=== PATIENT | male | born 1965 ===

== ENCOUNTER 2019-05-25 18:44 | Observation (INO) | payer BC ==
[2019-05-25 19:04] LABS: #Basophils 0.1 thou/uL (0.0-0.2); #Eosinphils 0.1 thou/uL (0.0-0.7); #Lymphocytes 2.2 thou/uL (1.20-3.40); #Monocytes 0.6 thou/uL (0.11-0.59); #Neutrophils 4.8 thou/uL (1.40-6.50); %Basophils 1.5 % (0.0-1.0); %Eosinophils 1.8 % (0.0-10.0); %Lymphocytes 27.8 % (21.0-51.0); %Monocytes 7.6 % (0.0-10.0); %Neutrophils 61.4 % (42.0-75.0); Hemoglobin 16.3 g/dL (14.0-18.0); Mean Corpuscular HGB CONC 35.8 g/dL (32.0-36.0); Mean Corpuscular Hemoglobin 31.5 pg (27.0-31.0); Mean Corpuscular Volume 88.1 fL (78.0-98.0); Mean Platelet Volume 7.1 fL (7.4-10.4); Platelet Count 241 thou/uL (130-400); RBC Distribution Width 11.4 % (11.5-14.5); Red Blood Cell (RBC) Count 5.16 mill/uL (4.70-6.10); White Blood Cell (WBC) Count 7.9 thou/uL (4.8-10.8)
[2019-05-25 19:27] LABS: ALT (SGPT) 10 U/L (8-55); AST (SGOT) 23 U/L (5-34); Albumin 4.5 g/dL (3.5-5.0); Alkaline Phosphatase 93 U/L (40-110); Anion Gap 13 mmol/L (10-20); BUN (Urea Nitrogen) 10 mg/dL (8.4-25.7); Bilirubin, Total 0.6 mg/dL (0.2-1.2); CK (CPK) 107 U/L (30-200); Calc. Creatinine Clearance 0 mL/min (70-130); Calcium 8.8 mg/dL (7.8-10.44); Carbon Dioxide 25 mmol/L (22-29); Chloride 105 mmol/L (98-107); Estimated GFR-MDRD Greater than 90; Globulin 2.8 g/dL (2.4-3.5); Glucose 90 mg/dL (70-105); Lipase 35 U/L (8-78); Protein, Total 7.3 g/dL (6.0-8.3); Sodium 139 mmol/L (136-145)
--- NOTE | 2019-05-25 19:39 | RAD ---
RADIOGRAPH CHEST 1 VIEW: DATE: 05/25/2019 HISTORY: 53-year-old male with chest pain FINDINGS: There are no airspace densities, pulmonary edema, pneumothorax, or cardiomegaly. The lateral costophr enic angles are sharp. IMPRESSION: No acute cardiopulmonary findings.
[2019-05-25] MEDS ORDERED: Aspirin Chewable 81 MG TAB ONE (21:01)
[2019-05-25 22:12] LABS: Troponin I Less than 0.010 ng/mL (< 0.028)
[2019-05-25] MEDS ORDERED: Ondansetron ODT 4 MG TAB SL PRN (22:26)
[2019-05-25] MEDS ORDERED: Ondansetron PF 4 MG/2 ML Vial IVP PRN (22:26)
[2019-05-25] MEDS ORDERED: Acetaminophen 325 MG TAB PO PRN (22:26)
[2019-05-25 22:30] VITALS: BMI 24.6
[2019-05-26 01:16] LABS: Troponin I 0.013 ng/mL (< 0.028)
[2019-05-26] MEDS ORDERED: HYDROcodone/Acetaminophen 5/325 mg Tablet PO PRN (04:34)
[2019-05-26] MEDS ORDERED: hydrALAZINE 20 MG/ML VIAL SLOW IVP PRN (04:34)
[2019-05-26] MEDS ORDERED: Bisacodyl 10 MG SUPP PR PRN (04:34)
[2019-05-26] MEDS ORDERED: Morphine 2 MG/ML SYRINGE SLOW IVP PRN (04:34)
[2019-05-26] MEDS ORDERED: Ondansetron PF 4 MG/2 ML Vial IVP PRN (04:34)
[2019-05-26] MEDS ORDERED: Promethazine HCl 12.5 MG in Sodium Chloride 0.9% 50 ML IVPB PRN (04:34)
[2019-05-26] MEDS ORDERED: Bisacodyl 5 MG TAB PO PRN (04:34)
[2019-05-26] MEDS ORDERED: cloNIDine 0.1 MG TAB PO PRN (04:34)
--- NOTE | 2019-05-26 04:53 | PDOC.HHP ---
Hospitalist HPI - History of Present Illness Presyncope History of Present Illness: Patient is a 53 year old male with no PMH who presents to ED for chest pain and dizziness which occurred 3 times around 5am, associated with dizziness and presyncope. Denies current chest pain. Had similar episode 20 years ago. Pain was sharp and radiated down L arm with arm weakness. Improved with laying down. In ED, systolic murmur auscultated, patinet admitted for chest pain workup. ED Course: EKG NSR rate [address] findings Hospitalist ROS - Review of Systems Constitutional: denies: fever, chills, sweats, weakness, malaise, other Eyes: denies: pain, vision change, conjunctivae inflammation, eyelid inflammation, redness, other ENT: denies: ear pain, ear discharge, nose pain, nose discharge, nose congestion , mouth pain, mouth swelling, throat pain, throat swelling, other Respiratory: denies: cough, dry, shortness of breath, hemoptysis, SOB with excertion, pleuritic pain, sputum, wheezing, other Cardiovascular: reports: chest pain (per HPI w/ L arm radiation now resolved), light headedness Gastrointestinal: denies: nausea, vomiting, abdominal pain, diarrhea, constipation, melena, hematochezia, other Genitourinary: denies: dysuria, frequency, incontinence, hematuria, retention, other Musculoskeletal: denies: neck pain, shoulder pain, arm pain, back pain, hand pain, leg pain, foot pain, other Skin: denies: rash, lesions, jacqueline, bruising, other Neurological: denies: weakness, numbness, incoordination, change in speech, confusion, seizures, other All other systems reviewed; all pertinent +/- noted in HPI/Subj Hospitalist History - Past Medical History Other Medical History: denies - Past Surgical History Other Surgical History: denies - Family History Other Family History: denies - Social History Smoking Status: Never smoker Alcohol: reports: None Drugs: reports: none - Exam General Appearance: NAD, awake alert Eye: PERRL, anicteric sclera ENT: normocephalic atraumatic, no oropharyngeal lesions, moist mucosa Neck: supple, symmetric, no JVD, no thyromegaly, no lymphadenopathy, no carotid bruit Heart: RRR, no murmur, no gallops, no rubs, normal peripheral pulses Respiratory: CTAB, no wheezes, no rales, no ronchi, normal chest expansion, no tachypnea, normal percussion Gastrointestinal: soft, non-tender, non-distended, normal bowel sounds, no palpable masses, no hepatomegaly, no splenomegaly, no bruit Extremities: no cyanosis, no clubbing, no edema Skin: normal turgor, no lesions, no rashes Neurological: cranial nerve grossly intact, normal sensation to touch, no weakness, no focal deficits, no new deficit Musculoskeletal: normal tone, normal strength, no muscle wasting Psychiatric: normal affect, normal behavior, A&O x 3 Hospitalist Results - Labs Result Diagrams: 05/25/19 18:57 05/25/19 18:57 Lab results: WBC 7.9 thou/uL (4.8-10.8) 05/25/19 18:57 Hgb 16.3 g/dL (14.0-18.0) 05/25/19 18:57 Hct 45.5 % (42.0-52.0) 05/25/19 18:57 MCV 88.1 fL (78.0-98.0) 05/25/19 18:57 Plt Count 241 thou/uL (130-400) 05/25/19 18:57 Neutrophils % 61.4 % (42.0-75.0) 05/25/19 18:57 Sodium 139 mmol/L (136-145) 05/25/19 18:57 Potassium 4.0 mmol/L (3.5-5.1) 05/25/19 18:57 Chloride 105 mmol/L (98-107) 05/25/19 18:57 Carbon Dioxide 25 mmol/L (22-29) 05/25/19 18:57 BUN 10 mg/dL (8.4-25.7) 05/25/19 18:57 Creatinine 0.80 mg/dL (0.7-1.3) 05/25/19 18:57 Glucose 90 mg/dL (70-105) 05/25/19 18:57 Calcium 8.8 mg/dL (7.8-10.44) 05/25/19 18:57 Total Bilirubin 0.6 mg/dL (0.2-1.2) 05/25/19 18:57 AST 23 U/L (5-34) 05/25/19 18:57 ALT 10 U/L (8-55) 05/25/19 18:57 Alkaline Phosphatase 93 U/L (40-110) 05/25/19 18:57 Creatine Kinase 107 U/L (30-200) 05/25/19 18:57 Troponin I 0.013 ng/mL (< 0.028) 05/26/19 00:46 Serum Total Protein 7.3 g/dL (6.0-8.3) 05/25/19 18:57 Albumin 4.5 g/dL (3.5-5.0) 05/25/19 18:57 Lipase 35 U/L (8-78) 05/25/19 18:57 Hospitalist H&P A/P - Plan Plan: 53M w/ no PMH admitted for: # chest pain, near syncope - admit to telemetry, continue ASA, echo ordered, trend troponin, cardiology consult if positive findings # murmur - workup as above
[2019-05-26 05:35] LABS: Troponin I Less than 0.010 ng/mL (< 0.028)
[2019-05-26] MEDS ORDERED: FLU VACC QS2019-20(6MOS UP)/PF 60 MCG/0.5 ML SYRINGE IM ONE (09:00)
[2019-05-26] MEDS ORDERED: Aspirin 81 mg Enteric Coated Tablet PO SCH (09:00)
[2019-05-26] MEDS ORDERED: Enoxaparin Sodium 40 MG/0.4 ML SYRINGE SC SCH (09:00)
[2019-05-26] MEDS ORDERED: Polyethylene Glycol 3350 17 GM Packet PO SCH (09:00)
[2019-05-26 10:26] LABS: Troponin I Less than 0.010 ng/mL (< 0.028)
[2019-05-26 12:09] VITALS: TEMP 97.8
[2019-05-26 15:30] VITALS: BP 118/71
--- NOTE | 2019-05-26 15:53 | NM ---
EXAM: NM Cardiac Stress W EF WF PROVIDED CLINICAL HISTORY: Chest pain COMPARISON: None RADIOPHARMACEUTICAL: 30 millicuries technetium 99m labeled sestamibi IV stress 11 millicuries technetium 99m labeled sestamibi IV rest FINDINGS: There is normal, homogeneous distribution of radiotracer throughout the left ventricular myocardium. Gated data demonstrate normal myocardial wall motion and thickening with calculated LVEF 62%. Calculated TID is 0.84. IMPRESSION: 1. No scintigraphic evidence for ischemia. 2. Calculated LVEF 62%.
--- NOTE | 2019-05-27 00:51 | DIS ---
DATE OF ADMISSION: 05/25/2019 DATE OF DISCHARGE: 05/26/2019 DISCHARGE DIAGNOSES: 1. Chest pain, noncardiac. 2. Dizziness, unclear etiology. 3. Gastroesophageal reflux disease. CONSULTATIONS: None. PERTINENT LABORATORY AND X-RAY FINDINGS: Troponin I negative x5. Lipase 35. CBC within normal limits. Portable chest x-ray dated 05/25/2019 showed no acute cardiopulmonary process. Cardiolite stress test dated 05/26/2019 showed no evidence for reversible ischemia with calculated ejection fraction 62%. 2D transthoracic echocardiogram dated 05/26/2019 showed ejection fraction of 50% to 60%. Mild mitral and tricuspid regurgitation. HOSPITAL COURSE: The patient was observed on the telemetry unit after presenting with chest pain and dizziness. The patient underwent serial cardiac biomarkers, which were negative x5. The patient proceeded with exercise Cardiolite stress testing showing no evidence of ischemia with a calculated ejection fraction of 62%. Telemetry monitoring showed sinus mechanism without evidence of acute arrhythmia or dysrhythmia. Screening metabolic survey was unremarkable and the patient remained clinically stable during the hospital course. I have examined the patient at the time of discharge and discussed followup instructions. The patient verbalized understanding and agreement, ready for discharge on 05/26/2019. DISCHARGE MEDICATIONS: Reviewed and none. FOLLOWUP: The patient may follow up with local [facility] as needed. DIET: Regular. CODE STATUS: Full. DISPOSITION: Home, 05/26/2019. Job ID: [id number]
--- NOTE | 2019-05-29 09:43 | STRESS ---
Acquisition Time: 2019-05-26 13:54:47 Total Exercise Time: 00:10:00 Test Indications: CHEST PAIN Medications: Protocol: MARY Max HR: 148 BPM 89% of Pred: 165 BPM Max BP: 160/080 mmHG Max Work Load: 13.4 METS RESTING ECG: NORMAL SINUS RHYTHM AT 67 BPM SYMPTOMS: NONE NORMAL BP RESPONSE ECTOPY: RARE PVCS ECG STRESS: NO SIGNIFICANT CHANGES INTERPRETATION: NEGATIVE/AWAIT NUCLEAR IMAGES FOR DEFINITIVE DIAGNOSIS Confirmed by PRAVIN BAUER ([id number]), business editor STEVE KENNEDY ([id number]) on 05/29/2019 9:42:50 AM Referred By: Travis HURD Confirmed By:PRAVIN BAUER
== END 2019-05-26 17:21 | disposition home or self-care (01) ==
LOC: ERS 18:44 → 2SW 22:26
PROVIDERS: ADMIT Internal Medicine; ATTEND Internal Medicine
DX: R55 Syncope and collapse (principal); R42 Dizziness and giddiness; R07.9 Chest pain, unspecified; K21.9 Gastro-esophageal reflux disease without esophagitis
CPT/HCPCS: 36415; 71045; 78452; 80053; 82550; 83690; 84484; 85025; 90471; 90686; 93005; 93017; 93306; 94760; 96372; A9500; G0008; G0378; J1650